=== PATIENT | female | born 1970 | race Caucasian/White ===

== ENCOUNTER → 2017-02-20 | Outpatient (CLI) | payer OTHER ==
--- NOTE | 2017-02-20 15:24 | US ---
EXAMINATION TYPE: US kidneys/renal and bladder DATE OF EXAM: 02/20/2017 COMPARISON: NONE CLINICAL HISTORY: [id number] COLIC. Left flank pain x 2 weeks, hematuria EXAM MEASUREMENTS: Right Kidney: 10.7 x 4.8 x 4.5 cm Left Kidney: 10.5 x 4.8 x 4.9 cm Right Kidney: visualized portions wnl, inferior pole limited by overlying bowel gas Left Kidney: multiple echogenic shadowing foci mid pole with largest measuring 0.8cm, 1.4cm cystic ar ea mid pole Bladder: wnl Bilateral Jets seen: yes There is no evidence for hydronephrosis at this point in time. Nephrolithiasis left kidney. 4 cm cyst left kidney. Limited visualization right kidney. The urinary bladder is anechoic. Bilateral uretera l jets are seen. IMPRESSION: 1. Nonobstructing left-sided nephrolithiasis. 2. Simple cyst left kidney.
== END | disposition home or self-care (01) ==
LOC: RADUSWWP 14:00
PROVIDERS: ATTEND Internal Medicine
DX: N20.0 Calculus of kidney (principal); N28.1 Cyst of kidney, acquired
CPT/HCPCS: 76770

== ENCOUNTER → 2017-04-10 | Outpatient (CLI) | payer OTHER ==
--- NOTE | 2017-04-10 15:02 | CT ---
EXAMINATION TYPE: CT abdomen pelvis wo con DATE OF EXAM: 04/10/2017 COMPARISON: NONE INDICATION: Rt flank pain, history of renal stones DLP: 354.3 mGycm, Automated exposure control for dose reduction was used. CONTRAST: 0 mL of Omnipaque 300. Study performed without Oral Contrast TECHNIQUE: Axial images were obtained from above the diaphragm to the pubic rami in the axial plane a t 5 mm thick sections. Reconstructed images are reviewed on the computer in the coronal plane. FINDINGS: Limited CT sections are obtained the lung bases. There is some mild compressive atelectasis within t he posterior right lung base.. CT ABDOMEN: Liver: Normal Spleen: Normal Pancreas: Normal Adrenal glands: The adrenal glands are normal. Gallbladder: Surgically absent. Kidneys: No masses are evident. No cysts are present. There is a 0.5 cm calcification in the lateral superior left kidney. There is a mild left hydronephrosis. Punctate calcifications at the inferior p ole left kidney measuring 0.4 cm. There is a 0.5 cm obstructing proximal left ureteral stone with th e left hydronephrosis. Right ureter is unremarkable. Aorta: Normal Inferior vena cava: Normal. CT PELVIS: Loops of bowel within the abdomen and pelvis are normal. Few diverticuli are evident. Study is wi thout oral contrast. Appendix: Normal as visualized. Urinary bladder: Normal. Genitourinary structures: Uterus and adnexal regions are unremarkable. Osseous structures: No suspicious lytic or sclerotic lesions. Medullary infarct may be within the pro ximal intertrochanteric region right hip scoliosis is present. IMPRESSIONS: 1. 0.5 cm obstructing left ureteral stone with mild left hydronephrosis. 2. Diverticulosis without acute diverticulitis.
== END | disposition home or self-care (01) ==
LOC: RADCTMAIN 14:16
PROVIDERS: ATTEND Family Medicine
DX: N13.2 Hydronephrosis with renal and ureteral calculous obstruction (principal); K57.90 Diverticulosis of intestine, part unspecified, without perforation or abscess without bleeding
CPT/HCPCS: 74176

== ENCOUNTER → 2017-04-15 | Outpatient (CLI) | payer OTHER ==
[2017-04-15 14:22] LABS: Basophils % (A) 0 %; CH 31.1; Eosinophils # (A) 0.2 k/uL (0-0.7); Eosinophils % (A) 2 %; HCT 41.9 % (34.0-46.0); HDW 2.39; HGB 13.7 gm/dL (11.4-16.0); Luc # (Auto) 0.12; Luc % (Auto) 1; Lymphocytes # (A) 3.8 k/uL (1.0-4.8); Lymphocytes % (A) 32 %; MCH 30.1 pg (25.0-35.0); MCHC 32.8 g/dL (31.0-37.0); MCV 91.6 fL (80.0-100.0); Monocytes # (A) 0.5 k/uL (0-1.0); Monocytes % (A) 4 %; Neutrophils # (A) 7.5 k/uL (1.3-7.7); Neutrophils % (A) 62 %; RBC 4.57 m/uL (3.80-5.40); RDW 13.9 % (11.5-15.5); WBC 12.1 k/uL (3.8-10.6); WBC (Perox) 11.98
[2017-04-15 14:42] LABS: Anion Gap 10 mmol/L; Blood Urea Nitrogen 12 mg/dL (7-17); Calcium 9.7 mg/dL (8.4-10.2); Carbon Dioxide 25 mmol/L (22-30); Chloride 106 mmol/L (98-107); Glucose 87 mg/dL (74-99); Non-African American GFR(MDRD) >60 (>60 ml/min/1.73 sqM); Potassium 4.3 mmol/L (3.5-5.1); Sodium 141 mmol/L (137-145)
== END | disposition home or self-care (01) ==
LOC: LABPAT 13:52
PROVIDERS: ATTEND Urology
DX: Z01.812 Encounter for preprocedural laboratory examination (principal); N20.0 Calculus of kidney
CPT/HCPCS: 80048; 85025

== ENCOUNTER 2017-04-17 09:54 | Day surgery (SDC) | payer OTHER ==
[2017-04-15 16:21] VITALS: BMI 24.3
[~2017-04-17 09:54] MED LIST: ceFAZolin 2 GM in SODIUM CHLORIDE 0.9% 100 ML IVPB ONE
--- NOTE | 2017-04-17 09:58 | XR ---
EXAMINATION TYPE: XR KUB DATE OF EXAM: 04/17/2017 9:47 AM CLINICAL HISTORY: Left nephrolithiasis TECHNIQUE: Single supine KUB image of the abdomen is obtained. COMPARISON: None. FINDINGS: Scattered gas is seen in non-distended small bowel loops. 3 mm and 2 mm left renal pole lissette al calculi are seen. Additional 2 mm calcific density is likely located within colon lateral to the r enal shadow. Additional 5 mm calculus is present adjacent to the transverse process of L3 and may hav e migrated from the prior CT. This can be located within the renal pelvis or ureter. There is a slight levoscoliotic curvature of the lumbar spine with degenerative changes at the thorac olumbar junction and transitional vertebrae noted. Gas and fecal material is seen in non-distended co earl. IMPRESSION: 5 mm calculus adjacent to the left transverse process of L3, and may have migrated in comparison to t he prior CT where this is located in the upper pole laterally. Additional left renal calculi are thou ght to be nonobstructing. Renal ultrasound could be performed to evaluate for hydronephrosis.
[2017-04-17 10:08] VITALS: RESP 16
[2017-04-17] MEDS ORDERED: LACTATED RINGERS 1,000 ML IV ONE ×3 (10:11→12:08)
[2017-04-17] MEDS ORDERED: LIDOCAINE 1% 20 ML VIAL (10MG/ML) FOR IV START INTRADERMA ONE (10:12)
[2017-04-17] MEDS: ONDANSETRON 4 MG/2 ML VIAL IVP ONE ×2 (10:14→12:15)
[2017-04-17] MEDS ORDERED: DEXAMETHASONE SOD PHOS (MDV) 100 MG/10 ML VIAL IV ONE (10:14)
[2017-04-17] MEDS ORDERED: MIDAZOLAM 2 MG/2 ML VIAL ONE (10:18)
[2017-04-17] MEDS ORDERED: GLYCOPYRROLATE 0.2 MG/ML 2 ML VIAL ONE (10:18)
[2017-04-17] MEDS ORDERED: LIDOCAINE 1% INJ 10MG/ML (20 ML MDV) ONE (10:18)
[2017-04-17] MEDS ORDERED: PHENYLEPHRINE-0.9% NACL SYG 1 MG/10 ML SYRINGE ONE (10:18)
[2017-04-17] MEDS ORDERED: ROCURONIUM BROMIDE 10 MG/ML 10 ML VIAL IV ONE (10:18)
[2017-04-17] MEDS ORDERED: fentaNYL (PF) 50 MCG/ML 2 ML AMP ONE (10:18)
[2017-04-17] MEDS ORDERED: SUCCINYLCHOLINE CHLORIDE 100 MG/5 ML SYR IV ONE (10:18)
[2017-04-17] MEDS ORDERED: NEOSTIGMINE 1 MG/ML 10 ML VIAL ONE (10:18)
[2017-04-17] MEDS ORDERED: PROPOFOL 10 MG/ML 20 ML VIAL IV ONE (10:18)
[2017-04-17 12:04] VITALS: TEMP 98.4
--- NOTE | 2017-04-17 12:12 | P.OP ---
Date of Procedure: 04/17/17 Preoperative Diagnosis: Left Ureteral Calculus, Left Renal Calculus Postoperative Diagnosis: Same Procedure(s) Performed: Cystoscopy, Left Ureteroscopy with Holmium Laser Lithotripsy and Stone Basketing , Left Ureteral Stent Insertion Implants: Anesthesia: MISSYA Surgeon: Caleb Watson Estimated Blood Loss (ml): 5 IV fluids (ml): 700 Pathology: other (calculus fragments, sent for chemical analysis) Condition: stable Disposition: PACU Indications for Procedure: She is a 46-year-old woman with no prior history of urolithiasis. She now presents with left renal colic due to a 5 mm left proximal ureteral calculus. The CT scan shows 1-2 additional left renal calculi. I reviewed alternative treatment options with her, and she has elected to undergo ureteroscopic removal of the calculi. Operative Findings: Impacted left proximal ureteral calculus. Left renal calculus. Description of Procedure: The patient was taken to the operating room and placed in the dorsolithotomy position, with legs supported in Anton stirrups. The external genitalia was prepped and draped sterilely. The 30 lens was used to introduce the 19-Kyr[place]z Stortz cystoscopic sheath through the urethra and into the bladder under direct vision. The bladder was examined in its entirety. The right ureteral orifice was of normal anatomic location and configuration, there is the left ureteral orifice showed evidence of a possible ureterocele. Clear urine effluxed from both. The entire bladder was examined. No tumors or foreign bodies were seen. The 0.038 inch Glidewire was passed through the cystoscope. The left ureteral orifice was cannulated, and the Glidewire was advanced up to the calculus. The calculus was impacted and the Glidewire could not be advanced beyond the calculus. An 11/13-Kyrgyz ureteral access catheter was passed over the wire, up to the mid ureter. The Olympus mini flexible ureteroscope was passed through the ureteral access catheter sheath and up to the proximal ureteral calculus. The 200 micron Holmium laser probe was passed through the ureteroscope, and lithotripsy was performed. The ureteroscope was then advanced up to the left renal pelvis. Each calyx was examined. The 5 mm midpole calculus was located, and fragmented using the laser. A 1.9-Kyrgyz nitinol basket was then used to remove these calculus fragments from the ureter and kidney. There was no evidence of ureteral perforation. The Glidewire was passed through the ureteral access catheter sheath and up to the left renal pelvis. The Glidewire was then backloaded into the cystoscope, which was passed into the bladder. The 26 cm, 4.8-Kyrgyz double-J ureteral stent was placed over the wire. Proper stent positioning was verified fluoroscopically and endoscopically. The bladder was emptied and the cystoscope removed. The string attached and the stent was taped to the patient's left lateral thigh. The patient tolerated the procedure well and was taken to the recovery room in stable condition.
--- NOTE | 2017-04-17 12:16 | FL ---
Fluoroscopy History: KIDNEY STONE REMOVAL 18 SEC FL TIME. 1 IMAGE SCANNED
[2017-04-17 13:32] VITALS: BP 130/75; PULSE 69
== END 2017-04-17 13:33 | disposition home or self-care (01) ==
LOC: OR 09:54
PROVIDERS: ATTEND Urology
DX: N20.2 Calculus of kidney with calculus of ureter (principal); M94.0 Chondrocostal junction syndrome [Tietze]; F41.9 Anxiety disorder, unspecified; F32.9 Major depressive disorder, single episode, unspecified; Z98.51 Tubal ligation status; F17.200 Nicotine dependence, unspecified, uncomplicated; Z91.030 Bee allergy status; Z79.899 Other long term (current) drug therapy
CPT/HCPCS: 81025; 82365; 74000; 52356; C2625; C1769 ×2; C1758; J2250; J2710; J0690; J2405; J2001; J3010; J1100; J2370; J0330; J2704

== ENCOUNTER 2019-10-21 10:25 | Emergency (ER) | payer OTHER ==
[2019-10-21 10:33] VITALS: TEMP 97.3
[2019-10-21] MEDS ORDERED: KETOROLAC 30 MG/ML 1 ML VIAL IM STA (10:51)
--- NOTE | 2019-10-21 10:55 | ED ---
Fall HPI - General Chief Complaint: Fall Stated Complaint: fall Time Seen by Provider: 10/21/19 10:36 Source: patient Mode of arrival: ambulatory - History of Present Illness Initial Comments: Patient is a 49-year-old female presenting to the emergency department with a chief complaint of a fall. Patient states she was walking on the stairs when she slipped and fell on her Botox. Patient reports increased swelling in the region along with ecchymosis. Patient reports a large, hard area on the right buttock. States the area is very tender. Denies any numbness or tingling distally or proximally from the region of injury. States she is able to ambulate but does feel a dull pain at the region of injury. Does report taking [id number] analgesics minimal improvement. Denies head injury or loss of consciousness. No blood thinners. - Related Data Home Medications Medication Instructions Recorded Confirmed Cohosh (Unknown Dose) 1 tab PO DAILY 04/15/17 04/17/17 HYDROcodone/APAP 5-325MG [[place] 1 tab PO Q6HR PRN 04/15/17 04/17/17 5-325] Multivitamins, Thera [Multivitamin 1 tab PO DAILY 04/15/17 04/17/17 (formulary)] Ondansetron HCl [Zofran] 8 mg PO BID PRN 04/15/17 04/17/17 Tamsulosin [Flomax] 0.4 mg PO DAILY 04/15/17 04/17/17 Previous Rx's Medication Instructions Recorded Hydrocodone/Acetaminophen [[place] 1 - 2 each PO Q4HR PRN #15 tab 04/17/17 5-325] Allergies Allergy/AdvReac Type Severity Reaction Status Date / Time No Known Allergies Allergy Verified 10/21/19 10:33 Review of Systems ROS Statement: Those systems with pertinent positive or pertinent negative responses have been documented in the HPI. ROS Other: All systems not noted in ROS Statement are negative. Past Medical History Past Medical History: No Reported History History of Any Multi-Drug Resistant Organisms: None Reported Past Surgical History: Cholecystectomy, Tubal Ligation Additional Past Surgical History / Comment(s): Neck fusion. Past Psychological History: No Psychological Hx Reported Smoking Status: Current every day smoker Past Alcohol Use History: None Reported Past Drug Use History: None Reported General Exam Limitations: no limitations General appearance: alert, in no apparent distress Head exam: Present: atraumatic, normocephalic, normal inspection Eye exam: Present: normal appearance Pupils: Present: normal accommodation ENT exam: Present: normal exam Neck exam: Present: normal inspection, full ROM Respiratory exam: Present: normal lung sounds bilaterally Cardiovascular Exam: Present: regular rate, normal rhythm, normal heart sounds Extremities exam: Present: normal inspection, full ROM Back exam: Present: normal inspection, full ROM, other (Ecchymosis noted at the gluteal cleft. Large area of ecchymosis on the right buttock measuring approximately 10 cm in diameter.). Absent: tenderness, CVA tenderness (R), CVA tenderness (L) Neurological exam: Present: alert, oriented X3 Psychiatric exam: Present: normal affect, normal mood Skin exam: Present: warm, dry, intact, normal color Course Vital Signs 10/21/19 10/21/19 10:31 12:14 Temperature 97.3 F L 97.3 F L Pulse Rate 59 L 60 Respiratory 20 18 Rate Blood Pressure 151/84 131/66 O2 Sat by Pulse 99 Oximetry Medical Decision Making - Medical Decision Making Patient is a 49-year-old female presented emergency Department with a chief complaint of a fall. Patient was walking on stairs when she fell on her Botox. No head trauma loss of consciousness. Patient did tripped which caused the fall. On exam she does have ecchymosis near the gluteal cleft along with a large hematoma on the right buttock. The region is firm and quite tender. Pelvic and coccyx x-ray are unremarkable. An incidental finding of a bone lesion was noted on the right femur that appears to be denying and nonreactive. Patient was given Toradol in the ED for pain. Reevaluation patient reports improving his symptoms. Patient is able to ambulate without issues although she does have some discomfort due to the pain. Patient advised to apply warm compress to the region to alleviate the symptoms and swelling. Patient advised to return to emergency department if symptoms worsen. Case discussed with physician Disposition Clinical Impression: Fall, Gluteal pain, Traumatic hematoma of buttock Disposition: HOME SELF-CARE Condition: Stable Instructions (If sedation given, give patient instructions): Fall Prevention (ED), Hematoma (ED) Additional Instructions: Apply heat to the region of injury. Take prescribed medication as directed. Return to emergency department if symptoms worsen. Is patient prescribed a controlled substance at d/c from ED?: No Referrals: J Carlos Diaz MD [Primary Care Provider] - 1-2 days Time of Disposition: 11:58
--- NOTE | 2019-10-21 11:32 | XR ---
EXAMINATION TYPE: XR pelvis AP view, XR sacrum coccyx DATE OF EXAM: 10/21/2019 CLINICAL HISTORY: Right-sided pelvic and sacral pain after fall TECHNIQUE: A single AP view of the pelvis is obtained. 3 views of the sacrum and coccyx were also obt ained. COMPARISON: CT of 04/10/2017 FINDINGS: There is obliquity in imaging. There is no acute fracture/dislocation evident in the pelvi s. The hip and sacroiliac joints appear symmetric and unremarkable. The overlying soft tissue appea rs unremarkable. Right proximal femoral 2.5 x 1.7 cm lesion is seen also seen in the CT of 04/10/2017 unchanged in size when measured in a similar fashion. This has a narrow zone of transition on CT and appears nonaggressive. Transitional vertebrae is seen at L5 with near-complete sacralization. No acut e displaced sacral fracture nor coccygeal fracture seen. IMPRESSION: There is no acute fracture or dislocation in the pelvis. Incidental note of a transition al vertebrae at L5 and stable nonaggressive appearing right femoral lesion in comparison to the prior CT of 04/10/2017.
[2019-10-21] MEDS ORDERED: ACET/COD 300 MG/30 MG STARTER PACK 6 TAB BTL PO STA (11:59)
[2019-10-21 12:16] VITALS: BP 131/66; PULSE 60; RESP 18
== END 2019-10-21 12:21 | disposition home or self-care (01) ==
LOC: EC 10:25
DX: S30.0XXA Contusion of lower back and pelvis, initial encounter (principal); F17.200 Nicotine dependence, unspecified, uncomplicated; Z79.899 Other long term (current) drug therapy; Z98.1 Arthrodesis status; W10.9XXA Fall (on) (from) unspecified stairs and steps, initial encounter; Y93.01 Activity, walking, marching and hiking; Y92.009 Unspecified place in unspecified non-institutional (private) residence as the place of occurrence of the external cause
CPT/HCPCS: 72170; 72220; 99283; 96372; J1885

== ENCOUNTER → 2021-08-15 | Outpatient (CLI) | payer OTHER ==
--- NOTE | 2021-08-15 11:46 | ECHOS ---
STRESS ECHOCARDIOGRAM INDICATIONS: Chest pain BASELINE HEART RATE: 81 BASELINE BLOOD PRESSURE: 152/86 MAXIMUM HEART RATE: 135 MAXIMUM BLOOD PRESSURE: 208/51 85% MPHR: 142 100% MPHR: 167 METS: 7.3 MAXIMUM STAGE REACHED: 2 TOTAL EXERCISE TIME: 6:00 CLINICAL INFORMATION: STRESS DATA: Heart rate is 81, pressure is 152/86 mmHg. Baseline EKG showed sinus mechanism. The patient exercised on the treadmill according to Maurice protocol for a total of 6 minutes and achieved 7.5 METS. Max heart rate was 135 with a maximum blood pressure of 208/51 mmHg. Clinically the patient reported chest discomfort in response to exercise. The EKG did not show any significant ST or T-wave abnormalities concerning for ischemia. An echo from parasternal long axis view, parasternal short axis view, apical 4-chamber, apical 2-chamber views were obtained as the baseline images at the peak of the heart rate as well as on recovery. The echo showed wall motion abnormalities in the inferolateral segment concerning for severe CAD. CONCLUSION: 1. Good exercise tolerance. 2. Chest tightness in response to exercise. 3. Abnormal stress echocardiogram with evidence of wall motion abnormalities in the inferolateral segment concerning for severe underlying coronary artery disease. MMODL / IJN: [id number] /
== END | disposition home or self-care (01) ==
LOC: RADNMMAIN 09:19
PROVIDERS: ATTEND Family Medicine
DX: R07.89 Other chest pain (principal); I25.10 Atherosclerotic heart disease of native coronary artery without angina pectoris; R93.1 Abnormal findings on diagnostic imaging of heart and coronary circulation
CPT/HCPCS: 93351

== ENCOUNTER → 2021-08-15 | Outpatient (CLI) | payer OTHER ==
[2021-08-15 15:03] LABS: ALT 172 U/L (8-44); AST 187 U/L (13-35); Chol/HDL Ratio 5.45 Ratio; LDL Cholesterol,Calculated 150.5 mg/dL (0.0-131.0)
== END | disposition home or self-care (01) ==
LOC: LABWHC1 10:11
PROVIDERS: ATTEND Internal Medicine Cardiovascular Disease
DX: E78.2 Mixed hyperlipidemia (principal)
CPT/HCPCS: 36415; 80061; 84450; 84460

== ENCOUNTER → 2021-09-07 | Outpatient (CLI) | payer OTHER ==
[2021-09-07 12:12] LABS: African American GFR (CKD) >90 (>60 ml/min/1.73 sqM); Anion Gap 9 mmol/L; Blood Urea Nitrogen 7 mg/dL (7-17); Carbon Dioxide 25 mmol/L (22-30); Chloride 106 mmol/L (98-107); Non-African American GFR(CKD) >90 (>60 ml/min/1.73 sqM); Sodium 140 mmol/L (137-145)
[2021-09-07 12:23] LABS: HCT 43.4 % (34.0-46.0); HGB 14.7 gm/dL (11.4-16.0); MCHC 33.9 g/dL (31.0-37.0); MCV 94.3 fL (80.0-100.0); Mean Platelet Volume 7.3; Platelet Count 264 k/uL (150-450); RDW 13.5 % (11.5-15.5); WBC 10.2 k/uL (3.8-10.6)
== END | disposition home or self-care (01) ==
LOC: LABPAT 10:57
PROVIDERS: ATTEND Internal Medicine Cardiovascular Disease
DX: Z01.812 Encounter for preprocedural laboratory examination (principal); R94.39 Abnormal result of other cardiovascular function study
CPT/HCPCS: 80051; 82565; 84520; 85027

== ENCOUNTER 2021-09-11 09:31 | Day surgery (SDC) | payer OTHER ==
[2021-09-04 13:15] VITALS: BMI 29.4
[~2021-09-11 09:31] MED LIST changes: +ALPRAZolam 0.25 MG TAB PO PRN; +ALPRAZolam 0.5 MG TAB PO PRN; +ASPIRIN 325 MG TAB PO ONE; +ATORVASTATIN 80 MG TAB PO ONE; +HEPARIN SODIUM,PORCINE 10,000 UNIT in SODIUM CHLORIDE 0.9% 1,000 ML IRRIGATION PRN; +HEPARIN SODIUM,PORCINE 2,500 UNIT in SODIUM CHLORIDE 0.9% 250 ML IRRIGATION PRN; +NITROGLYCERIN SL TABS 0.4 MG TAB SUBLINGUAL PRN; +SODIUM CHLORIDE 0.9% 1,000 ML in EMPTY BAG 1 BAG IV SCH; -ceFAZolin 2 GM in SODIUM CHLORIDE 0.9% 100 ML IVPB ONE
[2021-09-11] MEDS ORDERED: SODIUM CHLORIDE 0.9% 1,000 ML IV ONE (09:40)
[2021-09-11 09:53] VITALS: RESP 16; TEMP 98.3
[2021-09-11] MEDS ORDERED: LIDOCAINE 1% INJ 10MG/ML (20 ML MDV) ONE (10:02)
[2021-09-11] MEDS ORDERED: fentaNYL (PF) 50 MCG/ML 2 ML AMP ONE (10:28)
[2021-09-11] MEDS: MIDAZOLAM 2 MG/2 ML VIAL IVP ONE ×2 (10:41→10:48)
[2021-09-11] MEDS ORDERED: fentaNYL (PF) 50 MCG/ML 2 ML AMP IVP ONE (10:41)
[2021-09-11] MEDS ORDERED: VERAPAMIL 2.5 MG/ML 2 ML AMP ONE (10:41)
[2021-09-11] MEDS ORDERED: HEPARIN SODIUM 1,000 UN/ML (10ML VL) ONE (10:45)
[2021-09-11] MEDS ORDERED: LIDOCAINE 1% INJ 10MG/ML (20 ML MDV) SQ ONE (10:45)
[2021-09-11] MEDS ORDERED: VERAPAMIL SYRINGE (5 MG/10 ML) INTRAARTER ONE (10:47)
[2021-09-11] MEDS ORDERED: HEPARIN SODIUM 1,000 UN/ML (10ML VL) IVP ONE (10:50)
[2021-09-11] MEDS ORDERED: IOPAMIDOL-370 125ML BTL INJ ONE (11:00)
[2021-09-11] MEDS ORDERED: RX INFO: IV CONTRAST WAS GIVEN 1 EACH MISC MISCELLANE PRN (11:09)
[2021-09-11] MEDS ORDERED: SODIUM CHLORIDE 0.9% 1,000 ML IV SCH (11:15)
--- NOTE | 2021-09-11 14:07 | CC ---
CARDIAC CATHETERIZATION REPORT INDICATION: Abnormal stress test. This is a 51-year-old lady who is referred to us with chest pain and an abnormal stress echo showing ischemia involving the lateral wall. Patient was advised to undergo cardiac catheterization and had been explained risks, benefits and alternatives, understood and accepted. PROCEDURE NOTE: After obtaining informed consent, left heart catheterization and coronary angiogram were performed via the right radial artery using size 3-1/2 Angelina catheters. Left ventricular pressures were obtained advancing the right Angelina into the LV. Patient tolerated the procedure well without any obvious immediate complications. Right radial artery access was obtained using modified Seldinger technique, and under fluoroscopic guidance catheters and wires were floated into the ascending aorta. Patient received 5 mg of verapamil and 4000 units of heparin, and at the end of the procedure a TR band was used for hemostasis. Adequate pulse ox was documented. FINDINGS: HEMODYNAMICS: Left ventricular end-diastolic pressure is 12 mm. There is no significant gradient across the aortic valve. LEFT VENTRICULOGRAM: Left ventriculogram was not performed. ANGIOGRAPHIC DATA: Right coronary artery. Right coronary artery is a large dominant vessel and is free of significant stenosis. Left main coronary artery is a normal-sized vessel and is free of stenosis. It divides into left anterior descending coronary artery and circumflex coronary artery. LAD and its branches, circumflex coronary artery and its branches are free of significant stenosis. CONCLUSIONS: 1. Normal coronary arteries. 2. Normal left ventricular end-diastolic pressure. PLAN: I reviewed stress test findings with the patient and told her that her symptoms are noncardiac in origin and her management is going to be in the form of risk factor modification and optimal medical therapy. MMODL / IJN: [id number] /
[2021-09-11 14:16] VITALS: PULSE 78
[2021-09-11 16:17] VITALS: BP 123/67
== END 2021-09-11 16:13 | disposition home or self-care (01) ==
LOC: CATHCVL 09:31
PROVIDERS: ATTEND Internal Medicine Cardiovascular Disease
DX: R94.39 Abnormal result of other cardiovascular function study (principal); Z20.822 Contact with and (suspected) exposure to COVID-19
CPT/HCPCS: 93458; 87635; C1894; J2250; J2001; J3010; J1644; Q9967

== ENCOUNTER → 2025-03-23 | Outpatient (CLI) | payer BC | END | disposition home or self-care (01) | LOC: LABWHC1 14:34 | PROVIDERS: ATTEND Nurse Practitioner Family | DX: E11.29 Type 2 diabetes mellitus with other diabetic kidney complication (principal) | CPT/HCPCS: 36415; 83036 ==